=== PATIENT | female | born 1980 | race Caucasian/White ===

== ENCOUNTER 2017-01-05 22:30 | Inpatient (IN) | payer BC ==
[~2017-01-05] VITALS: Ht 167.6 cm; Wt 94.8 kg
[2017-01-05] MEDS ORDERED: CEFAZOLIN 2 GM IVPB PREMIX 50 ML IV ONE (23:15)
[2017-01-05] MEDS ORDERED: CITRIC ACID/SODIUM CITRATE 30 ML UDC PO ONE (23:15)
[2017-01-05] MEDS ORDERED: PHYTONADIONE 10 MG/ML AMP IM ONE (23:30)
[2017-01-05 23:45] LABS: HEMATOCRIT 37.1 % (36-48); HEMOGLOBIN 13.1 g/dL (12.0-16.0); MEAN CORPUSCULAR HEMOGLOBIN 33 pg (27-31); MEAN CORPUSCULAR HGB CONC 35 % (32-36); MEAN CORPUSCULAR VOLUME 94 fL (79.0-98.0); PLATELET COUNT (AUTO) 169 K/uL (130-430); RED BLOOD CELL COUNT(AUTO) 3.94 MIL/uL (4.2-6.2); WHITE BLOOD COUNT (AUTO) 9.6 K/uL (4.8-10.8)
[2017-01-06 00:02] LABS: INR 0.9 (0.8-1.2); PROTHROMBIN TIME 9.7 SECS (9.5-12.5)
[2017-01-06 00:14] LABS: ATYPICAL LYMPHOCYTES % 0 % (0-0); BAND % (MANUAL) 1 % (0-6); BASOPHILS % (MANUAL) 0 % (0-2); EOSINOPHILS % (MANUAL) 0 % (0-7); LYMPHOCYTES % (MANUAL) 18 % (20-46); MONOCYTES % (MANUAL) 5 % (0-11)
[2017-01-06] MEDS: LR 1,000 ML IV SCH ×2 (00:21→00:50)
[2017-01-06] MEDS ORDERED: PHYTONADIONE 10 MG/ML AMP ONE (00:26)
[2017-01-06] MEDS ORDERED: OXYTOCIN/NORMAL SALINE 1,000 ML IV ONE ×2 (02:10→05:51)
[2017-01-06] MEDS ORDERED: LR 1,000 ML IV SCH ×2 (02:33→05:51)
[2017-01-06] MEDS ORDERED: HYDROmorphone 1 MG INJ. 1 MG/ML AMPUL ONE (02:40)
[2017-01-06] MEDS ORDERED: METOCLOPRAMIDE HCL 10 MG/2 ML VIAL IVP PRN (02:45)
[2017-01-06] MEDS ORDERED: HYDROmorphone 1 MG INJ. 1 MG/ML AMPUL IVP PRN ×2 (02:45)
[2017-01-06] MEDS ORDERED: HYDROmorphone 2 MG/ML VIAL IVP PRN (02:45)
[2017-01-06 03:00] VITALS: BP_SYST 112
[2017-01-06] MEDS ORDERED: HYDROcodone/ACETAMIN 5-325 MG TAB (NORCO/ VICODIN) PO PRN (06:00)
[2017-01-06] MEDS ORDERED: DOCUSATE SODIUM 100 MG CAPSULE PO PRN (06:00)
[2017-01-06] MEDS ORDERED: ANUSOL 1 EA SUPP.RECT (PREPARATION H) RC PRN (06:00)
[2017-01-06] MEDS ORDERED: OXYCODONE/ACETAMINOPHEN 5-325 TABLET PO PRN (06:00)
[2017-01-06] MEDS ORDERED: BISACODYL 10 MG/SUPPOSITORY RC PRN (06:00)
[2017-01-06] MEDS ORDERED: RHO(D) IMMUNE GLOBULIN/MALTOSE 1500 UNITS/1.3 ML (WINHRO) IM PRN (06:00)
[2017-01-06] MEDS ORDERED: SENNOSIDES/DOCUSATE SODIUM 1 TAB TABLET(SENOKOT-S) PO PRN (06:00)
[2017-01-06] MEDS ORDERED: LANOLIN 7 GM OINT. TP PRN (06:00)
[2017-01-06] MEDS ORDERED: MEASLES,MUMPS&RUBELLA VACC/PF 12500 UNIT/0.5 ML VIAL SUBQ PRN (06:00)
[2017-01-06] MEDS: CEFAZOLIN 1 GM IVPB PREMIX 50 ML IV SCH ×3 (08:15→19:58)
[2017-01-06] MEDS ORDERED: IBUPROFEN 600 MG TABLET PO SCH (12:00)
[2017-01-06] MEDS: OXYCODONE/ACETAMINOPHEN 5-325 TABLET PO PRN ×4 (13:47→23:05)
[2017-01-06] MEDS: SIMETHICONE 80 MG TAB.CHEW PO PRN ×3 (14:39→23:06)
[2017-01-06] MEDS: ENOXAPARIN SODIUM 40 MG/0.4 ML SYRINGE SUBCUT SCH (14:47)
[2017-01-06] MEDS ORDERED: TEMAZEPAM 15 MG CAPSULE PO PRN (21:00)
[2017-01-07] MEDS: OXYCODONE/ACETAMINOPHEN 5-325 TABLET PO PRN ×3 (05:09→20:50)
[2017-01-07 07:50] LABS: HEMATOCRIT 31.1 % (36-48); HEMOGLOBIN 10.7 g/dL (12.0-16.0); MEAN CORPUSCULAR HEMOGLOBIN 33 pg (27-31); MEAN CORPUSCULAR HGB CONC 34 % (32-36); MEAN CORPUSCULAR VOLUME 97 fL (79.0-98.0); PLATELET COUNT (AUTO) 140 K/uL (130-430)
[2017-01-07 08:10] LABS: WHITE BLOOD COUNT (AUTO) 12.7 K/uL (4.8-10.8)
[2017-01-07 09:08] LABS: ATYPICAL LYMPHOCYTES % 0 % (0-0); BAND % (MANUAL) 0 % (0-6); LYMPHOCYTES % (MANUAL) 11 % (20-46); MONOCYTES % (MANUAL) 6 % (0-11)
[2017-01-07 09:09] LABS: BASOPHILS % (MANUAL) 0 % (0-2); EOSINOPHILS % (MANUAL) 1 % (0-7)
[2017-01-07] MEDS: SIMETHICONE 80 MG TAB.CHEW PO PRN (10:23)
[2017-01-07] MEDS: IBUPROFEN 600 MG TABLET PO SCH ×3 (12:36→23:38)
[2017-01-07] MEDS ORDERED: IBUPROFEN 600 MG TABLET ONE (12:42)
[2017-01-07] MEDS: ENOXAPARIN SODIUM 40 MG/0.4 ML SYRINGE SUBCUT SCH (14:52)
[2017-01-08] MEDS: OXYCODONE/ACETAMINOPHEN 5-325 TABLET PO PRN (02:59)
[2017-01-08] MEDS: IBUPROFEN 600 MG TABLET PO SCH ×2 (05:48→11:51)
[2017-01-08 07:08] LABS: BASOPHILS % (AUTO) 0.3 % (0.0-2.0); EOSINOPHILS # (AUTO) 0.1 K/uL (0.0-0.4); EOSINOPHILS % (AUTO) 1.1 % (0.0-4.0); HEMOGLOBIN 9.7 g/dL (12.0-16.0); LYMPHOCYTES # (AUTO) 1.8 K/uL (1.0-5.5); LYMPHOCYTES % (AUTO) 16.6 % (20.5-51.5); MEAN CORPUSCULAR HEMOGLOBIN 33 pg (27-31); MEAN CORPUSCULAR HGB CONC 33 % (32-36); MEAN CORPUSCULAR VOLUME 98 fL (79.0-98.0); MONOCYTES # (AUTO) 0.8 K/uL (0.0-1.0); MONOCYTES % (AUTO) 7.2 % (1.7-9.3); NEUTROPHILS # (AUTO) 8.1 K/uL (1.8-7.7); NEUTROPHILS % (AUTO) 74.8 % (40.0-70.0); PLATELET COUNT (AUTO) 142 K/uL (130-430); RED BLOOD CELL COUNT(AUTO) 2.96 MIL/uL (4.2-6.2); WHITE BLOOD COUNT (AUTO) 10.8 K/uL (4.8-10.8)
== END 2017-01-08 14:35 | disposition home or self-care (01) | DRG 765 ==
LOC: SPU 22:30 → OBSVTOIN 22:45
PROVIDERS: ADMIT Obstetrics & Gynecology; ATTEND Obstetrics & Gynecology
PROC: 10D00Z1 Extraction of Products of Conception, Low, Open Approach (ICD-10-PCS; principal; 2017-01-06 01:15)
DX: O99.12 Other diseases of the blood and blood-forming organs and certain disorders involving the immune mechanism complicating childbirth (principal); D68.51 Activated protein C resistance; D68.59 Other primary thrombophilia; O34.211 Maternal care for low transverse scar from previous cesarean delivery; Z86.718 Personal history of other venous thrombosis and embolism; Z83.3 Family history of diabetes mellitus; Z3A.38 38 weeks gestation of pregnancy; Z37.0 Single live birth
CPT/HCPCS: 36415; 85007; 85025; 85027; 85610-TC; 85730-TC; 86592; 86886; 86900; 86901; 88307; 94010; 94760; G0378; J0690; J1170; J1650; J2590; J3430

== ENCOUNTER 2018-01-26 14:14 | Inpatient (IN) | payer BC ==
[~2018-01-26] VITALS: Ht 167.6 cm; Wt 86.2 kg
[2018-01-26 14:21] VITALS: BP_SYST 139
[2018-01-26] MEDS ORDERED: ONDANSETRON HCL 4 MG/2 ML VIAL IVP ONE (15:45)
[2018-01-26] MEDS ORDERED: ENOXAPARIN SODIUM 120 MG/0.8 ML SYRINGE SUBCUT ONE (15:45)
[2018-01-26] MEDS ORDERED: MORPHINE 4 MG/ML INJ. SYRINGE IVP ONE (15:45)
[2018-01-26] MEDS ORDERED: ACETAMINOPHEN 325 MG TABLET PO PRN ×2 (16:00→16:15)
[2018-01-26] MEDS ORDERED: ONDANSETRON HCL 4 MG/2 ML VIAL IVP PRN (16:00)
[2018-01-26] MEDS ORDERED: ENOXAPARIN SODIUM 80 MG/0.8 ML SYRINGE SUBCUT ONE (16:15)
[2018-01-26 16:22] LABS: BASOPHILS # (AUTO) 0.1 K/uL (0.0-0.2); BASOPHILS % (AUTO) 1.3 % (0.0-2.0); EOSINOPHILS # (AUTO) 0.2 K/uL (0.0-0.4); EOSINOPHILS % (AUTO) 3.2 % (0.0-4.0); HEMATOCRIT 38.8 % (36-48); HEMOGLOBIN 13.2 g/dL (12.0-16.0); LYMPHOCYTES # (AUTO) 1.5 K/uL (1.0-5.5); LYMPHOCYTES % (AUTO) 24.9 % (20.5-51.5); MEAN CORPUSCULAR HEMOGLOBIN 32 pg (27-31); MEAN CORPUSCULAR HGB CONC 34 % (32-36); MEAN CORPUSCULAR VOLUME 94 fL (79.0-98.0); MONOCYTES # (AUTO) 0.5 K/uL (0.0-1.0); MONOCYTES % (AUTO) 8.7 % (1.7-9.3); NEUTROPHILS # (AUTO) 3.6 K/uL (1.8-7.7); NEUTROPHILS % (AUTO) 61.9 % (40.0-70.0); PLATELET COUNT (AUTO) 198 K/uL (130-430); RED BLOOD CELL COUNT(AUTO) 4.11 MIL/uL (4.2-6.2); RED CELL DISTRIBUTION WIDTH 12.2 % (9.0-15.0); WHITE BLOOD COUNT (AUTO) 5.9 K/uL (4.8-10.8)
[2018-01-26 16:30] LABS: CALCIUM 8.9 mg/dL (8.4-11.0); CREATININE 0.69 mg/dL (0.55-1.30); POTASSIUM 3.7 mmol/L (3.5-5.1)
[2018-01-26 16:37] LABS: ALBUMIN 3.7 g/dL (3.4-4.8); TOTAL BILIRUBIN 0.3 mg/dL (0.0-1.0)
[2018-01-26 16:47] LABS: PROTHROMBIN TIME 9.7 SECS (9.5-12.5)
[2018-01-26 16:55] VITALS: BP_SYST 126
[2018-01-26 20:00] VITALS: BP_SYST 100
[2018-01-26] MEDS: ENOXAPARIN SODIUM 80 MG/0.8 ML SYRINGE SUBCUT SCH (20:27)
[2018-01-27 06:25] LABS: BASOPHILS % (AUTO) 0.5 % (0.0-2.0); EOSINOPHILS # (AUTO) 0.2 K/uL (0.0-0.4); EOSINOPHILS % (AUTO) 2.4 % (0.0-4.0); HEMATOCRIT 38.2 % (36-48); HEMOGLOBIN 13.2 g/dL (12.0-16.0); LYMPHOCYTES # (AUTO) 1.6 K/uL (1.0-5.5); LYMPHOCYTES % (AUTO) 25.3 % (20.5-51.5); MEAN CORPUSCULAR HEMOGLOBIN 32 pg (27-31); MEAN CORPUSCULAR HGB CONC 34 % (32-36); MEAN CORPUSCULAR VOLUME 94 fL (79.0-98.0); MONOCYTES # (AUTO) 0.5 K/uL (0.0-1.0); MONOCYTES % (AUTO) 8.1 % (1.7-9.3); NEUTROPHILS # (AUTO) 4.1 K/uL (1.8-7.7); NEUTROPHILS % (AUTO) 63.7 % (40.0-70.0); PLATELET COUNT (AUTO) 195 K/uL (130-430); RED BLOOD CELL COUNT(AUTO) 4.09 MIL/uL (4.2-6.2); RED CELL DISTRIBUTION WIDTH 12.4 % (9.0-15.0); WHITE BLOOD COUNT (AUTO) 6.4 K/uL (4.8-10.8)
[2018-01-27 06:35] LABS: ALBUMIN 3.5 g/dL (3.4-4.8); CALCIUM 8.6 mg/dL (8.4-11.0); CREATININE 0.78 mg/dL (0.55-1.30); POTASSIUM 3.9 mmol/L (3.5-5.1); TOTAL BILIRUBIN 0.2 mg/dL (0.0-1.0)
[2018-01-27 08:02] VITALS: BP_SYST 106
[2018-01-27] MEDS: ENOXAPARIN SODIUM 80 MG/0.8 ML SYRINGE SUBCUT SCH (08:56)
[2018-01-27 10:19] VITALS: BP_SYST 106
== END 2018-01-27 12:10 | disposition home or self-care (01) | DRG 300 ==
LOC: SED 14:14 → STU 16:01
PROVIDERS: ADMIT Internal Medicine; ATTEND Internal Medicine
DX: I82.C12 Acute embolism and thrombosis of left internal jugular vein (principal); D68.2 Hereditary deficiency of other clotting factors; R03.0 Elevated blood-pressure reading, without diagnosis of hypertension; Z98.891 History of uterine scar from previous surgery; Z79.01 Long term (current) use of anticoagulants; Z91.013 Allergy to seafood; Z86.718 Personal history of other venous thrombosis and embolism
CPT/HCPCS: 36415; 80053; 85025; 85610-TC; 85730-TC; 93971; 96374; 96375; 99285; J1650; J2270; J2405